=== PATIENT | female | born 1990 | race Hispanic/Latino ===

== ENCOUNTER 2019-04-15 09:26 | Outpatient (CLI) | payer OTHER ==
--- NOTE | 2019-04-15 10:03 | ULT ---
EXAM: OB ultrasound COMPARISON: None HISTORY: female. Evaluate size, dates, and anatomy. TECHNIQUE: Multiplanar grayscale and color Doppler images were obtained in a transabdominal ult rasound. FINDINGS: There is a single live intrauterine with heart rate of 142 bpm. A survey wa s performed which is unremarkable. The head, intracranial structures, heart, stomach, kidneys, umbilical cord, umbilical cord insertion, spine, face, and extremities were evaluated and were unrema rkable. Estimated weight is 314 g. Average age of the fetus based off today's examination is 20 weeks 1 day. BPD 4.68 cm -- 20 weeks 2 days HC 17.85 cm -- 20 weeks 3 days AC 14.93 cm -- 20 weeks 2 days FL 2.99 cm -- 19 weeks 2 days The placenta is anterior in location without focal abnormality. MARIA E is 11.56 cm which is normal. The cervix is normal in length. There is no evidence of placenta previa. IMPRESSION: Single live intrauterine with estimated age of 20 weeks 1 day.
== END 2019-04-15 09:27 | disposition home or self-care (01) ==
LOC: BICULT 09:26
DX: Z34.82 Encounter for supervision of other normal pregnancy, second trimester (principal); Z3A.20 20 weeks gestation of pregnancy
CPT/HCPCS: 76805

== ENCOUNTER 2019-05-07 06:59 | Outpatient (CLI) | payer OTHER ==
--- NOTE | 2019-05-07 08:00 | ULT ---
SONOGRAM RIGHT UPPER QUADRANT: HISTORY: Right upper quadrant pain. FINDINGS: Gallbladder is distended up to 8.6 cm. Echogenic stones and biliary sludge are apparent within the g allbladder lumen. No gallbladder wall thickening or pericholecystic fluid. The common duct is 0.4 c m. The patient was reportedly not tender over the gallbladder fossa at the time of the exam. Liver unremarkable without focal mass or intrahepatic biliary dilatation. No free fluid. IMPRESSION: Cholelithiasis. No evidence of acute biliary obstruction. POS: TPC
== END 2019-05-07 07:00 | disposition home or self-care (01) ==
LOC: BICULT 06:59
DX: R10.13 Epigastric pain (principal); K80.20 Calculus of gallbladder without cholecystitis without obstruction
CPT/HCPCS: 76705

== ENCOUNTER 2019-06-09 20:09 | Emergency (ER) | payer OTHER ==
[2019-06-09] MEDS ORDERED: Lidocaine Viscous Sol 2% 15 ml UD Cup ONE (20:44)
[2019-06-09] MEDS ORDERED: Mag-Al 1200 mg/1200 mg/30 ML UDCUP ONE (20:44)
[2019-06-09] MEDS ORDERED: Morphine 4 MG/ML VIAL ONE (20:44)
[2019-06-09 20:45] LABS: #Basophils 0.2 thou/uL (0.0-0.2); #Eosinphils 0.2 thou/uL (0.0-0.7); #Lymphocytes 2.7 thou/uL (1.20-3.40); #Neutrophils 7.7 thou/uL (1.40-6.50); %Basophils 1.6 % (0.0-1.0); %Eosinophils 1.6 % (0.0-10.0); %Lymphocytes 22.8 % (21.0-51.0); %Monocytes 8.3 % (0.0-10.0); %Neutrophils 65.8 % (42.0-75.0); Hemoglobin 11.3 g/dL (12.0-16.0); Mean Corpuscular HGB CONC 34.3 g/dL (32.0-36.0); Mean Corpuscular Hemoglobin 29.9 pg (27.0-31.0); Mean Corpuscular Volume 87.3 fL (78.0-98.0); Mean Platelet Volume 8.1 fL (7.4-10.4); Platelet Count 240 thou/uL (130-400); RBC Distribution Width 11.8 % (11.5-14.5); Red Blood Cell (RBC) Count 3.76 mill/uL (4.20-5.40); White Blood Cell (WBC) Count 11.7 thou/uL (4.8-10.8)
[2019-06-09 21:00] LABS: ALT (SGPT) 11 U/L (8-55); AST (SGOT) 12 U/L (5-34); Albumin 3.8 g/dL (3.5-5.0); Alkaline Phosphatase 78 U/L (40-110); Anion Gap 13 mmol/L (10-20); BUN (Urea Nitrogen) 8 mg/dL (7.0-18.7); Bilirubin, Total 0.2 mg/dL (0.2-1.2); Calc. Creatinine Clearance 0 mL/min (70-130); Calcium 9.8 mg/dL (7.8-10.44); Carbon Dioxide 20 mmol/L (22-29); Chloride 107 mmol/L (98-107); Estimated GFR-MDRD Greater than 90; Globulin 2.9 g/dL (2.4-3.5); Glucose 99 mg/dL (70-105); Lipase 17 U/L (8-78); Potassium 3.6 mmol/L (3.5-5.1); Protein, Total 6.7 g/dL (6.0-8.3); Sodium 136 mmol/L (136-145)
--- NOTE | 2019-06-09 21:32 | ULT ---
US Gallbladder RUQ HISTORY: Right upper quadrant pain COMPARISON: None. FINDINGS: Real-time imaging of the right upper quadrant shows echogenic foci with shadowing within th e gallbladder consistent with small stones also sludge is present. Technologist reports a positive ultrasound Calloway's sign. The common bile duct is 5 mm. The visualized liver parenchyma is normal. Right kidney is normal in size and not obstructed. The pancreas is obscured. IMPRESSION: Cholelithiasis with a normal caliber common duct and a positive ultrasound Calloway sign.
[2019-06-09 21:48] LABS: Bilirubin Negative (Negative); Blood, Urine Negative (Negative); Clarity Turbid (Clear); Glucose, Urine (Dipstick) Normal (Negative); Leukocyte 500 Leu/uL (Negative); Mucous/LPF Rare LPF (<2+); Nitrite Negative (Negative); Protein, Urine (Dipstick) Negative (Neg-Trace); Urobilinogen Normal mg/dL (Less than 2)
[2019-06-09 21:51] LABS: RBC/HPF 0-3 HPF (0-3)
[2019-06-09 21:53] LABS: Bacteria/HPF 3+ HPF (None Seen)
== END 2019-06-09 22:50 | disposition home or self-care (01) ==
LOC: ERS 20:09
DX: O99.613 Diseases of the digestive system complicating pregnancy, third trimester (principal); K80.20 Calculus of gallbladder without cholecystitis without obstruction; Z3A.28 28 weeks gestation of pregnancy
CPT/HCPCS: 76705; 80053; 81003; 81015; 83690; 85025; 96361; 96374; J2270

== ENCOUNTER 2019-08-19 19:45 | Inpatient (IN) | payer OTHER ==
[~2019-08-19 19:45] MED LIST: Bupivacaine 0.25% HCL 30 ML VIAL ONE
[2019-08-19] MEDS ORDERED: HYDROcodone/Acetaminophen 5/325 mg Tablet PO PRN (21:08)
[2019-08-19] MEDS ORDERED: Methylergonovine 0.2 MG/ML VIAL IM PRN (21:08)
[2019-08-19] MEDS ORDERED: Lidocaine 1% (PF) 30 ML VIAL SC PRN (21:08)
[2019-08-19] MEDS ORDERED: Diphenoxylate HCl/Atropine Tablet PO PRN (21:08)
[2019-08-19] MEDS ORDERED: NS w/ Oxytocin 10 units 500 ML IV SCH ×2 (21:08)
[2019-08-19] MEDS ORDERED: Ibuprofen 800 MG TAB PO PRN (21:08)
[2019-08-19] MEDS ORDERED: Ondansetron PF 4 MG/2 ML Vial IVP PRN (21:08)
[2019-08-19] MEDS ORDERED: hydrALAZINE 20 MG/ML VIAL SLOW IVP PRN (21:08)
[2019-08-19] MEDS ORDERED: Misoprostol 200 MCG TAB PR PRN (21:08)
[2019-08-19] MEDS ORDERED: Butorphanol Tartrate 1 MG/ML VIAL SLOW IVP PRN (21:08)
[2019-08-19] MEDS ORDERED: Promethazine HCl 25 MG/ML VIAL IM PRN (21:08)
[2019-08-19 21:18] VITALS: BMI 24.6
[2019-08-19] MEDS: Lactated Ringer's 1,000 ML IV SCH (21:42)
[2019-08-19] MEDS: Misoprostol 100 MCG TAB PO SCH (21:49)
[2019-08-19 21:58] LABS: Hemoglobin 10.9 g/dL (12.0-16.0); Mean Corpuscular HGB CONC 34.8 g/dL (32.0-36.0); Mean Corpuscular Hemoglobin 30.9 pg (27.0-31.0); Mean Corpuscular Volume 88.7 fL (78.0-98.0); Mean Platelet Volume 9.3 fL (7.4-10.4); Platelet Count 186 thou/uL (130-400); RBC Distribution Width 12.4 % (11.5-14.5); Red Blood Cell (RBC) Count 3.52 mill/uL (4.20-5.40); White Blood Cell (WBC) Count 10.7 thou/uL (4.8-10.8)
[2019-08-19 22:37] LABS: Syphilis Antibody Nonreactive (Nonreactive); Syphilis Antibody Index 0.03 S/CO (<1.00 Non-Reactive)
[2019-08-20 00:25] LABS: Hep B Surf Ag Non-Reactive S/CO (NonReactive)
[2019-08-20] MEDS: Misoprostol 100 MCG TAB PO SCH ×3 (02:21→23:13)
[2019-08-20] MEDS: Lactated Ringer's 1,000 ML IV SCH ×3 (05:40→17:56)
[2019-08-20] MEDS ORDERED: Fentanyl 4 mcg/Bup 0.1% Cadd 100 ML ONE (16:44)
[2019-08-20] MEDS ORDERED: ePHEDrine/0.9% NaCl/PF SYRINGE 50 mg/10 ml SLOW IVP PRN (17:54)
[2019-08-20] MEDS ORDERED: diphenhydrAMINE 50 MG/ML VIAL IVP PRN (17:54)
[2019-08-20] MEDS ORDERED: Acetaminophen 325 MG TAB PO PRN (17:54)
[2019-08-20] MEDS ORDERED: Lactated Ringer's 500 ML IV PRN (17:54)
[2019-08-20] MEDS ORDERED: Promethazine HCl 25 MG/ML VIAL IM PRN (17:54)
[2019-08-20] MEDS ORDERED: Naloxone HCl 0.4 mg/ml Vial IVP PRN ×2 (17:54)
[2019-08-20] MEDS ORDERED: Ondansetron PF 4 MG/2 ML Vial IVP PRN (17:54)
[2019-08-20] MEDS ORDERED: Communication Order-Pharmacy FS SCH (18:00)
[2019-08-20] MEDS ORDERED: Fentanyl 4 mcg/Bupivacaine 0.1% Cassette 100 ML EPIDURAL SCH (18:00)
[2019-08-20] MEDS: NS / Oxytocin 40 units/1000ml 1,000 ML IV PRN ×2 (20:50→22:54)
[2019-08-20] MEDS ORDERED: Tranexamic Acid 1,000 MG/10 ML VIAL ONE ×2 (21:08→21:50)
[2019-08-20] MEDS: Carboprost 250 MCG/ML AMP IM PRN ×2 (21:09→21:20)
[2019-08-20] MEDS ORDERED: Carboprost 250 MCG/ML AMP ONE (21:14)
[2019-08-20] MEDS ORDERED: Diphenoxylate HCl/Atropine Tablet PO PRN (23:16)
[2019-08-20] MEDS ORDERED: HYDROcodone/Acetaminophen 5/325 mg Tablet PO PRN (23:17)
[2019-08-20] MEDS ORDERED: Ibuprofen 800 MG TAB PO PRN (23:17)
[2019-08-21] MEDS: Lactated Ringer's 1,000 ML IV SCH (00:10)
[2019-08-21] MEDS ORDERED: Milk Of Magnesia 30 ML UDCUP PO PRN (01:24)
[2019-08-21] MEDS ORDERED: Benzocaine-Menthol 82.5 ML CAN TOP PRN (01:24)
[2019-08-21] MEDS ORDERED: hydrALAZINE 20 MG/ML VIAL SLOW IVP PRN (01:24)
[2019-08-21] MEDS ORDERED: Ondansetron PF 4 MG/2 ML Vial IVP PRN (01:24)
[2019-08-21] MEDS ORDERED: HYDROcodone/Acetaminophen 5/325 mg Tablet PO PRN ×2 (01:24)
[2019-08-21] MEDS ORDERED: Lanolin Ointment 7 GM TUBE TOP PRN (01:24)
[2019-08-21] MEDS ORDERED: Bisacodyl 10 MG SUPP PR PRN (01:24)
[2019-08-21] MEDS ORDERED: diphenhydrAMINE 25 MG CAP PO PRN (01:24)
[2019-08-21] MEDS ORDERED: NS / Oxytocin 40 units/1000ml 1,000 ML IV SCH (01:24)
[2019-08-21] MEDS ORDERED: Misoprostol 200 MCG TAB PO SCH (03:00)
[2019-08-21] MEDS: Ibuprofen 800 MG TAB PO SCH ×3 (06:15→21:22)
[2019-08-21 07:33] LABS: Hemoglobin 9.9 g/dL (12.0-16.0); Mean Corpuscular HGB CONC 34.4 g/dL (32.0-36.0); Mean Corpuscular Hemoglobin 30.9 pg (27.0-31.0); Mean Corpuscular Volume 89.7 fL (78.0-98.0); Mean Platelet Volume 9.4 fL (7.4-10.4); Platelet Count 150 thou/uL (130-400); RBC Distribution Width 12.6 % (11.5-14.5); White Blood Cell (WBC) Count 18.6 thou/uL (4.8-10.8)
[2019-08-21] MEDS ORDERED: Adacel (T-DAP) 0.5 ML SYRINGE IM ONE (09:00)
[2019-08-21] MEDS: Ferrous Sulfate 325 MG TAB PO SCH ×2 (09:28→17:58)
[2019-08-21] MEDS: Docusate Calcium (SURFAK) 240 MG CAP PO SCH ×2 (09:28→21:22)
[2019-08-21] MEDS: Prenatal Vitamin 1 TAB PO SCH (09:28)
[2019-08-22] MEDS: Ibuprofen 800 MG TAB PO SCH ×2 (06:16→14:57)
[2019-08-22] MEDS: Docusate Calcium (SURFAK) 240 MG CAP PO SCH (07:53)
[2019-08-22] MEDS: Prenatal Vitamin 1 TAB PO SCH (07:53)
[2019-08-22] MEDS: Ferrous Sulfate 325 MG TAB PO SCH (07:56)
[2019-08-22 08:28] VITALS: BP 107/65; TEMP 97.9
== END 2019-08-22 15:10 | disposition home or self-care (01) | DRG 806 ==
LOC: L&D 20:34 → 3SW 08-21 03:11
PROVIDERS: ADMIT Family Medicine; ATTEND Family Medicine
PROC: 10E0XZZ Delivery of Products of Conception, External Approach (ICD-10-PCS; principal; 2019-08-20)
PROC: 0KQM0ZZ Repair Perineum Muscle, Open Approach (ICD-10-PCS; 2019-08-20)
PROC: 10907ZC Drainage of Amniotic Fluid, Therapeutic from Products of Conception, Via Natural or Artificial Opening (ICD-10-PCS; 2019-08-20)
PROC: 3E033VJ Introduction of Other Hormone into Peripheral Vein, Percutaneous Approach (ICD-10-PCS; 2019-08-20)
PROC: 3E0P7VZ Introduction of Hormone into Female Reproductive, Via Natural or Artificial Opening (ICD-10-PCS; 2019-08-20)
DX: O70.1 Second degree perineal laceration during delivery (principal); O72.1 Other immediate postpartum hemorrhage; Z37.0 Single live birth; Z3A.39 39 weeks gestation of pregnancy
CPT/HCPCS: 36415; 51702; 85027; 86780; 86850; 86900; 86901; 87340; J0595; J2210; J2405; J2550; J2590; J3490; S0020

== ENCOUNTER 2019-09-11 01:21 | Emergency (ER) | payer OTHER ==
[2019-09-11] MEDS ORDERED: Morphine 4 MG/ML VIAL ONE (01:33)
[2019-09-11 01:50] LABS: #Basophils 0.1 thou/uL (0.0-0.2); #Eosinphils 0.2 thou/uL (0.0-0.7); #Lymphocytes 3.3 thou/uL (1.20-3.40); #Monocytes 0.5 thou/uL (0.11-0.59); #Neutrophils 4.5 thou/uL (1.40-6.50); %Basophils 1.1 % (0.0-1.0); %Eosinophils 2.5 % (0.0-10.0); %Lymphocytes 38.4 % (21.0-51.0); %Monocytes 6.2 % (0.0-10.0); %Neutrophils 51.9 % (42.0-75.0); Hemoglobin 12.8 g/dL (12.0-16.0); Mean Corpuscular HGB CONC 34.4 g/dL (32.0-36.0); Mean Corpuscular Volume 87.3 fL (78.0-98.0); Mean Platelet Volume 8.6 fL (7.4-10.4); Platelet Count 313 thou/uL (130-400); RBC Distribution Width 11.6 % (11.5-14.5); Red Blood Cell (RBC) Count 4.27 mill/uL (4.20-5.40); White Blood Cell (WBC) Count 8.6 thou/uL (4.8-10.8)
[2019-09-11 02:02] LABS: BHCG - Serum Negative (NEGATIVE); Pregs Control Background? CLEAR/WHITE (CLR/WHITE); Pregs Control Bar Appear? YES (CONTROL BAR)
[2019-09-11 02:13] LABS: ALT (SGPT) 15 U/L (8-55); AST (SGOT) 24 U/L (5-34); Albumin 4.2 g/dL (3.5-5.0); Alkaline Phosphatase 107 U/L (40-110); Anion Gap 15 mmol/L (10-20); BUN (Urea Nitrogen) 19 mg/dL (7.0-18.7); Bilirubin, Total 0.2 mg/dL (0.2-1.2); Calc. Creatinine Clearance 0 mL/min (70-130); Calcium 10.3 mg/dL (7.8-10.44); Carbon Dioxide 21 mmol/L (22-29); Chloride 108 mmol/L (98-107); Estimated GFR-MDRD 84; Globulin 3.7 g/dL (2.4-3.5); Glucose 111 mg/dL (70-105); Lipase 40 U/L (8-78); Potassium 4.7 mmol/L (3.5-5.1); Protein, Total 7.9 g/dL (6.0-8.3); Sodium 139 mmol/L (136-145)
[2019-09-11] MEDS ORDERED: Sucralfate 1 GM/10 ML UDCUP ONE (02:41)
[2019-09-11 03:38] LABS: Bacteria/HPF None Seen HPF (None Seen); Bilirubin Negative (Negative); Blood, Urine Negative (Negative); Clarity Turbid (Clear); Glucose, Urine (Dipstick) Normal (Negative); Leukocyte 250 Leu/uL (Negative); Nitrite Negative (Negative); Protein, Urine (Dipstick) 10 mg/dL (Neg-Trace); RBC/HPF 0-3 HPF (0-3); Urobilinogen Normal mg/dL (Less than 2)
== END 2019-09-11 04:22 | disposition home or self-care (01) ==
LOC: ERS 01:21
DX: K80.50 Calculus of bile duct without cholangitis or cholecystitis without obstruction (principal)
CPT/HCPCS: 80053; 81003; 81015; 83690; 84703; 85025; 96374; J2270

== ENCOUNTER 2019-09-25 04:49 | Day surgery (SDC) | payer OTHER ==
[2019-09-25] MEDS ORDERED: Ondansetron PF 4 MG/2 ML Vial ONE ×2 (05:14→10:47)
[2019-09-25] MEDS ORDERED: Morphine 4 MG/ML VIAL ONE ×2 (05:14→05:44)
[2019-09-25 05:20] LABS: #Basophils 0.1 thou/uL (0.0-0.2); #Eosinphils 0.2 thou/uL (0.0-0.7); #Lymphocytes 2.5 thou/uL (1.20-3.40); #Monocytes 0.6 thou/uL (0.11-0.59); %Basophils 0.9 % (0.0-1.0); %Eosinophils 2.5 % (0.0-10.0); %Lymphocytes 33.9 % (21.0-51.0); %Monocytes 7.8 % (0.0-10.0); Hemoglobin 12.7 g/dL (12.0-16.0); Mean Corpuscular HGB CONC 35.2 g/dL (32.0-36.0); Mean Corpuscular Hemoglobin 31.1 pg (27.0-31.0); Mean Corpuscular Volume 88.5 fL (78.0-98.0); Mean Platelet Volume 8.5 fL (7.4-10.4); Platelet Count 218 thou/uL (130-400); RBC Distribution Width 11.7 % (11.5-14.5); Red Blood Cell (RBC) Count 4.09 mill/uL (4.20-5.40); White Blood Cell (WBC) Count 7.3 thou/uL (4.8-10.8)
[2019-09-25 05:41] LABS: ALT (SGPT) 17 U/L (8-55); AST (SGOT) 14 U/L (5-34); Albumin 4.3 g/dL (3.5-5.0); Alkaline Phosphatase 99 U/L (40-110); Anion Gap 11 mmol/L (10-20); BUN (Urea Nitrogen) 14 mg/dL (7.0-18.7); Bilirubin, Total 0.2 mg/dL (0.2-1.2); Calc. Creatinine Clearance 0 mL/min (70-130); Carbon Dioxide 22 mmol/L (22-29); Chloride 109 mmol/L (98-107); Estimated GFR-MDRD Greater than 90; Globulin 2.9 g/dL (2.4-3.5); Glucose 86 mg/dL (70-105); Lipase 34 U/L (8-78); Potassium 4.4 mmol/L (3.5-5.1); Protein, Total 7.2 g/dL (6.0-8.3); Sodium 138 mmol/L (136-145)
[2019-09-25 06:25] LABS: Bacteria/HPF 1+ HPF (None Seen); Bilirubin Negative (Negative); Blood, Urine Negative (Negative); Clarity Clear (Clear); Glucose, Urine (Dipstick) Normal (Negative); Leukocyte 500 Leu/uL (Negative); Nitrite Negative (Negative); Protein, Urine (Dipstick) Negative (Neg-Trace); RBC/HPF 0-3 HPF (0-3); Urobilinogen Normal mg/dL (Less than 2)
--- NOTE | 2019-09-25 07:55 | ULT ---
RIGHT UPPER QUADRANT ABDOMINAL ULTRASOUND: COMPARISON: 06/09/2019. HISTORY: Abdominal pain. Epigastric pain and right upper quadrant abdominal pain for 3 months with nausea. TECHNIQUE: Multiplanar, york scale, and color Doppler images were obtained in a right upper quadrant abdominal u ltrasound. FINDINGS: Multiple small shadowing gallstones are seen in the gallbladder. There is no gallbladder wall thicke karla or pericholecystic fluid. The common bile duct is normal measuring 6 mm. Visualized portions of the pancreas are unremarkable. The right kidney is normal in echogenicity wit hout hydronephrosis and calculus and measures 10.5 cm in length. IMPRESSION: Cholelithiasis. POS: C
--- NOTE | 2019-09-25 08:55 | HP ---
CHIEF COMPLAINT: Right upper quadrant pain. HISTORY OF PRESENT ILLNESS: This is a 28-year-old female, who has had several episodes of severe epigastric pain radiating to the right upper quadrant and back associated with nausea and vomiting since June. She was at that time. She delivered on August 20. She has had several episodes since. She denies dark urine or light bowel movements. Ultrasound showed cholelithiasis. PAST MEDICAL HISTORY: Otherwise, healthy. PAST SURGICAL HISTORY: None. ALLERGIES: NO KNOWN DRUG ALLERGIES. MEDICATIONS: 1. Ibuprofen. 2. Multivitamin. SOCIAL HISTORY: She is , unemployed. No tobacco or alcohol. FAMILY HISTORY: Diabetes. PHYSICAL EXAMINATION: VITAL SIGNS: She is afebrile, pulse 52, and blood pressure 109/69. GENERAL: Well-developed, well-nourished female, in no apparent distress. HEENT: No jaundice. LUNGS: Clear. HEART: Regular rate and rhythm. ABDOMEN: Soft. She is mildly tender in the right upper quadrant. EXTREMITIES: Unremarkable. DIAGNOSTIC DATA: White count 7.3, H and H of 12 and 36, and platelet count 218. LFTs are normal. Urinalysis clear, 11 to 20 white cells. Ultrasound shows cholelithiasis, multiple shadowing gallstones. No wall thickening or pericholecystic fluid. Normal common bile duct. ASSESSMENT: Severe biliary colic, recurrent. PLAN: Laparoscopic cholecystectomy. CONSENT: I have discussed planned procedure as well as risk of bleeding, infection, injury to bile duct, injury to bowel, need to open, she understands and gives informed consent. Job ID: [id number]
[2019-09-25] MEDS ORDERED: ceFOXitin 2 GM/50 ML Duplex BAG ONE (09:00)
[2019-09-25] MEDS ORDERED: Ketorolac Tromethamine 30 MG/ML VIAL ONE (10:47)
[2019-09-25] MEDS ORDERED: Rocuronium Bromide 10 MG/ML (10ML VIAL) ONE (10:47)
[2019-09-25] MEDS ORDERED: PROPOFOL 200 MG/20 ML VIAL ONE (10:47)
[2019-09-25] MEDS ORDERED: Lidocaine 1% PF 5 ML VIAL ONE (10:47)
[2019-09-25] MEDS ORDERED: Dexamethasone 20 MG/5 ML VIAL ONE (10:47)
[2019-09-25] MEDS ORDERED: Promethazine HCl 25 MG/ML VIAL ONE (11:14)
[2019-09-25] MEDS ORDERED: HYDROcodone/Acetaminophen 5/325 mg Tablet ONE (11:25)
[2019-09-25] MEDS ORDERED: Fentanyl 100 MCG/2 ML VIAL ONE (11:25)
--- NOTE | 2019-09-25 11:49 | OP ---
DATE OF PROCEDURE: 09/25/2019 PREOPERATIVE DIAGNOSIS: Severe biliary colic. PROCEDURE PERFORMED: Laparoscopic cholecystectomy. INDICATIONS: A 28-year-old female, who has had multiple episodes of right upper quadrant pain, much worse over the last day or two. Ultrasound showed cholelithiasis. Normal liver function tests. FINDINGS: Early acute cholecystitis with some edema of the gallbladder wall, small caliber cystic duct. DESCRIPTION OF PROCEDURE: After informed consent was obtained, the patient was taken to the operating room, given general endotracheal anesthesia, placed in supine position. Abdomen was prepped and draped in usual fashion. Local anesthesia infiltrated subcutaneously and deep. A subumbilical incision was performed, subcu divided sharply. The fascia was grasped with 2 stay sutures of 0 Vicryl, placed in each side of midline. Midline incised. Digital palpation revealed no local adhesions. A blunt 12 mm trocar inserted. Pneumoperitoneum was created to a pressure of 15 mmHg. 0-degree laparoscope inserted under direct vision. Three 5 mm ports were placed subcostally. The gallbladder was grasped, advanced superiorly. The peritoneum was dissected distally to expose the cystic duct and artery in critical view. The duct and artery were triply ligated with hemoclips and divided. The gallbladder removed from its fossa utilizing electrocautery, was placed in an endosac and removed from the abdomen in the endosac, sent to Pathology for further analysis. Hemostasis was assured. Trocars and retractors removed. The fascia closed with interrupted 0 Vicryl suture. The skin closed with interrupted 4-0 Rapide. Dermabond applied. The patient tolerated the procedure well, transferred to Recovery in good condition. Sponge and needle count verified correct x2. Job ID: [id number]
== END 2019-09-25 15:30 | disposition home or self-care (01) ==
LOC: ERS 04:49
PROVIDERS: ATTEND Surgery
PROC: 0FT44ZZ Resection of Gallbladder, Percutaneous Endoscopic Approach (ICD-10-PCS; principal; 2019-09-25)
DX: O99.63 Diseases of the digestive system complicating the puerperium (principal); K80.66 Calculus of gallbladder and bile duct with acute and chronic cholecystitis without obstruction
CPT/HCPCS: 36416; 76705; 80053; 81003; 81015; 83690; 85025; 88304; 96361; 96374; 96375; J0694; J1100; J1885; J2001; J2270; J2405; J2550; J2704; J3010